=== PATIENT | female | born 1950 | race Caucasian/White ===

== ENCOUNTER 2016-10-27 22:55 | Emergency (ER) | payer MEDICARE, OTHER ==
--- NOTE | 2016-10-27 23:18 | ED ---
General Adult HPI - General Chief complaint: Chest Pain Stated complaint: chest pains hx of heart attacks Time Seen by Provider: 10/27/16 23:00 Source: patient, RN notes reviewed Mode of arrival: wheelchair Limitations: no limitations - History of Present Illness Initial comments: This is a 66-year-old female with past medical history significant for bypass surgery. Patient comes in today because she been experiencing central chest pain which radiates up to the left side of her neck. Patient states the pain started last night been intermittent ever since. Patient states she's had no difficulty breathing or shortness of breath per patient denies any palpitations. Patient denies any recent fever chills or cough. Patient denies any diaphoresis. Patient states she was nauseated earlier and did vomit times one. Patient denies any abdominal pain. Patient denies any headache patient denies numbness weakness. Patient denies any dizziness or near syncopal episode or lightheadedness. Patient states currently the pain persists she took some aspirin at home but she states she is ALLERGIC to nitroglycerin. - Related Data Home Medications Medication Instructions Recorded Confirmed Levothyroxine Sodium [Synthroid] 50 mcg PO DAILY 04/11/14 10/27/16 Atorvastatin [Lipitor] 20 mg PO HS 03/01/15 10/27/16 Aspirin 650 mg PO BID 05/09/16 10/27/16 Metoprolol Tartrate [Lopressor] 12.5 mg PO BID 05/09/16 10/27/16 amLODIPine [Norvasc] 2.5 mg PO DAILY 05/09/16 10/27/16 Previous Rx's Medication Instructions Recorded Clopidogrel [Plavix] 75 mg PO DAILY #30 tab 05/27/14 Ipratropium/Albuterol Sulfate 1 puff INHALATION RT-QID #1 03/02/15 [Combivent Respimat Inhaler] aer.w.adap Allergies Allergy/AdvReac Type Severity Reaction Status Date / Time Iodinated Contrast Media - Allergy Severe Rash/Hives Verified 10/27/16 23:13 Oral and beclomethasone dipropionate Allergy Unknown Verified 10/27/16 23:13 [From Qvar] clonidine HCl [From Catapres] Allergy Unknown Verified 10/27/16 23:13 codeine Allergy Unknown Verified 10/27/16 23:13 heparin Allergy Unknown Verified 02/02/17 23:13 hydromorphone HCl Allergy Unknown Verified 10/27/16 23:13 [From Dilaudid] iodine Allergy Unknown Verified 10/27/16 23:13 morphine Allergy Anaphylaxis Verified 10/27/16 23:13 oxytetracycline Allergy Unknown Verified 10/27/16 23:13 [From Terramycin] oxytetracycline HCl Allergy Unknown Verified 10/27/16 23:13 [From Terramycin] Penicillins Allergy Unknown Verified 10/27/16 23:13 pt states Allergy Unknown Uncoded 10/27/16 23:00 Review of Systems ROS Statement: Those systems with pertinent positive or pertinent negative responses have been documented in the HPI. ROS Other: All systems not noted in ROS Statement are negative. Past Medical History Past Medical History: Atrial Flutter, Coronary Artery Disease (CAD), Cancer, Chest Pain / Angina, CVA/TIA, Hyperlipidemia, Hypertension, Myocardial Infarction ([place]), Musculoskeletal Disorder, Osteoarthritis (OA), Pneumonia, Renal Disease, Seizure Disorder, Thyroid Disorder Additional Past Medical History / Comment(s): TIA's. has had several seizures in childhood, none in recent years Last Myocardial Infarction Date:: 2013 History of Any Multi-Drug Resistant Organisms: None Reported Past Surgical History: Appendectomy, Coronary Bypass/CABG, Heart Catheterization , Heart Catheterization With Stent, Hysterectomy Additional Past Surgical History / Comment(s): CYST REMOVED FROM LEFT SHOULDERHYSTERECTOMY DUE TO CA. Past Anesthesia/Blood Transfusion Reactions: Blood Transfusion Reaction Additional Past Anesthesia/Blood Transfusion Reaction / Comment(s): BLISTERS Date of Last Stent Placement:: 2003 Past Psychological History: No Psychological Hx Reported Smoking Status: Current every day smoker Past Alcohol Use History: None Reported Past Drug Use History: None Reported - Past Family History Mother Family Medical History: Diabetes Mellitus, Myocardial Infarction ([place]) Father Family Medical History: Diabetes Mellitus, Myocardial Infarction ([place]) Additional Family Medical History / Comment(s): at 62 of heart attack General Exam - General Exam Comments Initial Comments: GENERAL: Patient is well-developed and well-nourished. Patient is nontoxic and well- hydrated and is in mild distress. ENT: Neck is soft and supple. No significant lymphadenopathy is noted. Oropharynx is clear. Moist mucous membranes. Neck has full range of motion without eliciting any pain. EYES: The sclera were anicteric and conjunctiva were pink and moist. Extraocular movements were intact and pupils were equal round and reactive to light. Eyelids were unremarkable. PULMONARY: Unlabored respirations. Good breath sounds bilaterally. No audible rales rhonchi or wheezing was noted. CARDIOVASCULAR: There is a regular rate and rhythm without any murmurs gallops or rubs. ABDOMEN: Soft and nontender with normal bowel sounds. No palpable organomegaly was noted. There is no palpable pulsatile mass. SKIN: Skin is clear with no lesions or rashes and otherwise unremarkable. NEUROLOGIC: Patient is alert and oriented x3. Cranial nerves II through XII are grossly intact. Motor and sensory are also intact. Normal speech, volume and content. Symmetrical smile. MUSCULOSKELETAL: Normal extremities with adequate strength and full range of motion. No lower extremity swelling or edema. No calf tenderness. LYMPHATICS: No significant lymphadenopathy is noted PSYCHIATRIC: Normal psychiatric evaluation. Normal interpersonal interactions appears functionally intact in deals appropriately with others. No signs of depression. No signs of anxiety. Limitations: no limitations Course Vital Signs 10/27/16 10/27/16 10/28/16 22:57 23:45 00:41 Temperature 98.0 F 97 F L Pulse Rate 59 L 57 L 87 Respiratory 18 20 18 Rate Blood Pressure 149/69 132/62 128/62 O2 Sat by Pulse 97 97 97 Oximetry Medical Decision Making - Medical Decision Making EKG shows sinus bradycardia 57 bpm W[place] interval is 166 QRS on and 16 QT interval is 444 QTC is 432. Patient's EKG shows no ST segment elevation or depression or T wave abnormalities are noted. Chest x-ray showed no acute abdomen. I felt the patient was having unstable angina and I recommended that she stay on 2 different occasions and on both cases she stated she would not states she eventually signed out AMA I explained the risks of signing out she was in agreement that she understood the risks and she signed out. - Lab Data Result diagrams: 10/27/16 23:15 10/27/16 23:15 Lab Results 10/27/16 10/27/16 10/27/16 Range/Units 23:15 23:15 23:15 WBC 6.9 (3.8-10.6) k/uL RBC 4.66 (3.80-5.40) m/uL Hgb 14.5 (11.4-16.0) gm/dL Hct 43.3 (34.0-46.0) % MCV 92.9 (80.0-100.0) fL MCH 31.2 (25.0-35.0) pg MCHC 33.6 (31.0-37.0) g/dL RDW 12.8 (11.5-15.5) % Plt Count 172 (150-450) k/uL Neutrophils % 47 % Lymphocytes % 37 % Monocytes % 6 % Eosinophils % 7 % Basophils % 1 % Neutrophils # 3.2 (1.3-7.7) k/uL Lymphocytes # 2.6 (1.0-4.8) k/uL Monocytes # 0.4 (0-1.0) k/uL Eosinophils # 0.5 (0-0.7) k/uL Basophils # 0.0 (0-0.2) k/uL PT (9.0-12.0) sec INR (<1.1) APTT (22.0-30.0) sec Sodium 141 (137-145) mmol/L Potassium 4.0 (3.5-5.1) mmol/L Chloride 109 H (98-107) mmol/L Carbon Dioxide 23 (22-30) mmol/L Anion Gap 9 mmol/L BUN 16 (7-17) mg/dL Creatinine 0.70 (0.52-1.04) mg/dL Est GFR (MDRD) Af Amer >60 (>60 ml/min/1.73 sqM) Est GFR (MDRD) Non-Af >60 (>60 ml/min/1.73 sqM) Glucose 95 (74-99) mg/dL Calcium 9.4 (8.4-10.2) mg/dL Magnesium 1.9 (1.6-2.3) mg/dL Total Bilirubin 0.2 (0.2-1.3) mg/dL AST 20 (14-36) U/L ALT 28 (9-52) U/L Alkaline Phosphatase 74 (38-126) U/L Total Creatine Kinase 97 (30-135) U/L CK-MB (CK-2) 1.1 (0.0-2.4) ng/mL CK-MB (CK-2) Rel Index 1.1 Troponin I <0.012 (0.000-0.034) ng/mL Total Protein 6.9 (6.3-8.2) g/dL Albumin 3.9 (3.5-5.0) g/dL 10/27/16 Range/Units 23:15 WBC (3.8-10.6) k/uL RBC (3.80-5.40) m/uL Hgb (11.4-16.0) gm/dL Hct (34.0-46.0) % MCV (80.0-100.0) fL MCH (25.0-35.0) pg MCHC (31.0-37.0) g/dL RDW (11.5-15.5) % Plt Count (150-450) k/uL Neutrophils % % Lymphocytes % % Monocytes % % Eosinophils % % Basophils % % Neutrophils # (1.3-7.7) k/uL Lymphocytes # (1.0-4.8) k/uL Monocytes # (0-1.0) k/uL Eosinophils # (0-0.7) k/uL Basophils # (0-0.2) k/uL PT 9.9 (9.0-12.0) sec INR 1.0 (<1.1) APTT 22.1 (22.0-30.0) sec Sodium (137-145) mmol/L Potassium (3.5-5.1) mmol/L Chloride (98-107) mmol/L Carbon Dioxide (22-30) mmol/L Anion Gap mmol/L BUN (7-17) mg/dL Creatinine (0.52-1.04) mg/dL Est GFR (MDRD) Af Amer (>60 ml/min/1.73 sqM) Est GFR (MDRD) Non-Af (>60 ml/min/1.73 sqM) Glucose (74-99) mg/dL Calcium (8.4-10.2) mg/dL Magnesium (1.6-2.3) mg/dL Total Bilirubin (0.2-1.3) mg/dL AST (14-36) U/L ALT (9-52) U/L Alkaline Phosphatase (38-126) U/L Total Creatine Kinase (30-135) U/L CK-MB (CK-2) (0.0-2.4) ng/mL CK-MB (CK-2) Rel Index Troponin I (0.000-0.034) ng/mL Total Protein (6.3-8.2) g/dL Albumin (3.5-5.0) g/dL Disposition Clinical Impression: Unstable angina Disposition: Left Against Medical Advice Referrals: Tanika Ricketts MD [Primary Care Provider] - 1-2 days Time of Disposition: 01:05
[2016-10-27 23:25] LABS: Basophils % (A) 1 %; CHCM 34.6; Eosinophils # (A) 0.5 k/uL (0-0.7); Eosinophils % (A) 7 %; HCT 43.3 % (34.0-46.0); HDW 2.43; HGB 14.5 gm/dL (11.4-16.0); Luc # (Auto) 0.22; Luc % (Auto) 3; Lymphocytes # (A) 2.6 k/uL (1.0-4.8); Lymphocytes % (A) 37 %; MCH 31.2 pg (25.0-35.0); MCHC 33.6 g/dL (31.0-37.0); MCV 92.9 fL (80.0-100.0); Mean Platelet Volume 7.8; Monocytes # (A) 0.4 k/uL (0-1.0); Monocytes % (A) 6 %; Neutrophils # (A) 3.2 k/uL (1.3-7.7); Neutrophils % (A) 47 %; RBC 4.66 m/uL (3.80-5.40); RDW 12.8 % (11.5-15.5); WBC 6.9 k/uL (3.8-10.6); WBC (Perox) 6.97
[2016-10-27 23:35] LABS: Partial Thromboplastin Time 22.1 sec (22.0-30.0); Prothrombin Time 9.9 sec (9.0-12.0)
[2016-10-27 23:37] LABS: ALT 28 U/L (9-52); AST 20 U/L (14-36); Alkaline Phosphatase 74 U/L (38-126); Anion Gap 9 mmol/L; Blood Urea Nitrogen 16 mg/dL (7-17); Calcium 9.4 mg/dL (8.4-10.2); Carbon Dioxide 23 mmol/L (22-30); Chloride 109 mmol/L (98-107); Glucose 95 mg/dL (74-99); Magnesium 1.9 mg/dL (1.6-2.3); Non-African American GFR(MDRD) >60 (>60 ml/min/1.73 sqM); Sodium 141 mmol/L (137-145); Total Bilirubin 0.2 mg/dL (0.2-1.3); Total Protein 6.9 g/dL (6.3-8.2)
[2016-10-27 23:43] LABS: Creatine Kinase 97 U/L (30-135)
[2016-10-27 23:57] LABS: Creatine Kinase MB 1.1 ng/mL (0.0-2.4); Troponin I <0.012 ng/mL (0.000-0.034)
--- NOTE | 2016-10-28 00:05 | XR ---
EXAMINATION TYPE: XR chest 2V DATE OF EXAM: 10/27/2016 11:40 PM COMPARISON: 05/09/2016 HISTORY: History of CABG and chest pain TECHNIQUE: Frontal and lateral views of the chest are obtained. FINDINGS: No focal pneumonia pneumothorax or pleural effusion is noted. Chronic interstitial lung changes are suggested. Postsurgical changes of sternotomy are present. Athe rosclerotic calcification is noted in the aortic arch. The cardiac silhouette size is within normal limits. The osseous structures are intact. IMPRESSION: 1. No active lung infiltrates. 2. No significant interval change. 3. Chronic lung changes and sternotomy..
[2016-10-28 00:42] VITALS: BP 128/62; PULSE 87; RESP 18; TEMP 97
== END 2016-10-28 00:42 | disposition left against medical advice (07) ==
LOC: EC 22:55
DX: I25.110 Atherosclerotic heart disease of native coronary artery with unstable angina pectoris (principal); E07.9 Disorder of thyroid, unspecified; E78.5 Hyperlipidemia, unspecified; I10 Essential (primary) hypertension; Z95.1 Presence of aortocoronary bypass graft; Z88.8 Allergy status to other drugs, medicaments and biological substances; Z79.899 Other long term (current) drug therapy; Z79.82 Long term (current) use of aspirin; Z88.1 Allergy status to other antibiotic agents; Z91.041 Radiographic dye allergy status; Z88.5 Allergy status to narcotic agent; Z88.0 Allergy status to penicillin; Z91.048 Other nonmedicinal substance allergy status; I25.2 Old myocardial infarction; F17.200 Nicotine dependence, unspecified, uncomplicated; Z86.73 Personal history of transient ischemic attack (TIA), and cerebral infarction without residual deficits; Z95.5 Presence of coronary angioplasty implant and graft
CPT/HCPCS: 36415; 71020; 80053; 82550; 82553; 83735; 84484; 85025; 85610; 85730; 93005; 99285

== ENCOUNTER → 2017-02-13 | Outpatient (CLI) | payer MEDICARE, OTHER ==
[2017-02-13 20:11] LABS: Basophils # (A) 0.1 k/uL (0-0.2); Basophils % (A) 1 %; CH 31.5; Eosinophils # (A) 0.2 k/uL (0-0.7); Eosinophils % (A) 3 %; HCT 46.5 % (34.0-46.0); HDW 2.35; HGB 15.2 gm/dL (11.4-16.0); Luc # (Auto) 0.15; Luc % (Auto) 2; Lymphocytes # (A) 1.9 k/uL (1.0-4.8); Lymphocytes % (A) 29 %; MCH 31.3 pg (25.0-35.0); MCHC 32.7 g/dL (31.0-37.0); MCV 95.8 fL (80.0-100.0); Mean Platelet Volume 8.3; Monocytes # (A) 0.3 k/uL (0-1.0); Monocytes % (A) 5 %; Neutrophils # (A) 3.9 k/uL (1.3-7.7); Neutrophils % (A) 59 %; RBC 4.85 m/uL (3.80-5.40); RDW 12.6 % (11.5-15.5); WBC 6.6 k/uL (3.8-10.6); WBC (Perox) 6.73
[2017-02-13 20:23] LABS: ALT 27 U/L (9-52); AST 24 U/L (14-36); Alkaline Phosphatase 77 U/L (38-126); Anion Gap 14 mmol/L; Blood Urea Nitrogen 18 mg/dL (7-17); Calcium 9.8 mg/dL (8.4-10.2); Carbon Dioxide 23 mmol/L (22-30); Chloride 108 mmol/L (98-107); Cholesterol 153 mg/dL (<200); Glucose 93 mg/dL (74-99); HDL Cholesterol 54 mg/dL (40-60); Non-African American GFR(MDRD) >60 (>60 ml/min/1.73 sqM); Sodium 145 mmol/L (137-145); Total Bilirubin 0.4 mg/dL (0.2-1.3); Total Protein 7.6 g/dL (6.3-8.2); Triglycerides 93 mg/dL (<150)
[2017-02-13 21:04] LABS: Vitamin B12 784 pg/mL
[2017-02-13 21:22] LABS: Hemoglobin A1C 5.9 % (4.2-6.1)
== END ==
LOC: MMGSC 14:51
PROVIDERS: ATTEND Family Medicine
DX: E03.9 Hypothyroidism, unspecified (principal); E11.9 Type 2 diabetes mellitus without complications; E78.5 Hyperlipidemia, unspecified; I25.10 Atherosclerotic heart disease of native coronary artery without angina pectoris; R53.83 Other fatigue
CPT/HCPCS: 36415; 80053; 80061; 82043; 82306; 82607; 83036; 84439; 84443; 85025; 99214

== ENCOUNTER 2017-03-16 15:53 | Emergency (ER) | payer MEDICARE, OTHER ==
--- NOTE | 2017-03-16 16:32 | ED ---
General Adult HPI - General Chief complaint: Recheck/Abnormal Lab/Rx Stated complaint: weakness heart fluttering Time Seen by Provider: 03/16/17 16:19 Source: patient, RN notes reviewed, old records reviewed Mode of arrival: ambulatory Limitations: no limitations - History of Present Illness Initial comments: This is a 66 female to the ED co CP, patient has severe cardiac history, CABG, stent after cabbage. Patient with pain for about a week at this time, patient still chest at this time, anterior chest pain having is just like prior [place]. Patient both MIs presented in the similar fashion. Patient has no fever, congestion, does have mild shortness of breath with exertion. Patient is single sick contacts. - Related Data Home Medications Medication Instructions Recorded Confirmed Levothyroxine Sodium [Synthroid] 50 mcg PO DAILY 04/11/14 03/16/17 Atorvastatin [Lipitor] 20 mg PO HS 03/01/15 03/16/17 Aspirin 650 mg PO BID 05/09/16 03/16/17 Metoprolol Tartrate [Lopressor] 12.5 mg PO BID 05/09/16 03/16/17 amLODIPine [Norvasc] 2.5 mg PO DAILY 05/09/16 03/16/17 Ranitidine HCl [Zantac] 150 mg PO BID 03/16/17 03/16/17 Previous Rx's Medication Instructions Recorded Clopidogrel [Plavix] 75 mg PO DAILY #30 tab 05/27/14 Ipratropium/Albuterol Sulfate 1 puff INHALATION RT-QID #1 03/02/15 [Combivent Respimat Inhaler] aer.w.adap Allergies Allergy/AdvReac Type Severity Reaction Status Date / Time Iodinated Contrast Media - Allergy Severe Rash/Hives Verified 03/16/17 16:09 Oral and beclomethasone dipropionate Allergy Unknown Verified 03/16/17 16:09 [From Qvar] clonidine HCl [From Catapres] Allergy Unknown Verified 03/16/17 16:09 codeine Allergy Unknown Verified 03/16/17 16:09 heparin Allergy Unknown Verified 03/16/17 16:09 hydromorphone HCl Allergy Unknown Verified 03/16/17 16:09 [From Dilaudid] iodine Allergy Unknown Verified 03/16/17 16:09 morphine Allergy Anaphylaxis Verified 03/16/17 16:09 oxytetracycline Allergy Unknown Verified 03/16/17 16:09 [From Terramycin] oxytetracycline HCl Allergy Unknown Verified 03/16/17 16:09 [From Terramycin] Penicillins Allergy Unknown Verified 03/16/17 16:09 pt states Allergy Unknown Uncoded 03/16/17 16:09 Review of Systems ROS Statement: Those systems with pertinent positive or pertinent negative responses have been documented in the HPI. ROS Other: All systems not noted in ROS Statement are negative. Past Medical History Past Medical History: Atrial Flutter, Coronary Artery Disease (CAD), Cancer, Chest Pain / Angina, CVA/TIA, Hyperlipidemia, Hypertension, Myocardial Infarction ([place]), Musculoskeletal Disorder, Osteoarthritis (OA), Pneumonia, Renal Disease, Seizure Disorder, Thyroid Disorder Additional Past Medical History / Comment(s): ABBEY's. has had several seizures in childhood, none in recent years Last Myocardial Infarction Date:: 2013 History of Any Multi-Drug Resistant Organisms: None Reported Past Surgical History: Appendectomy, Coronary Bypass/CABG, Heart Catheterization , Heart Catheterization With Stent, Hysterectomy Additional Past Surgical History / Comment(s): CYST REMOVED FROM LEFT SHOULDERHYSTERECTOMY DUE TO CA. Past Anesthesia/Blood Transfusion Reactions: Blood Transfusion Reaction Additional Past Anesthesia/Blood Transfusion Reaction / Comment(s): BLISTERS Date of Last Stent Placement:: 2003 Past Psychological History: No Psychological Hx Reported Smoking Status: Current every day smoker Past Alcohol Use History: None Reported Past Drug Use History: None Reported - Past Family History Mother Family Medical History: Diabetes Mellitus, Myocardial Infarction ([place]) Father Family Medical History: Diabetes Mellitus, Myocardial Infarction ([place]) Additional Family Medical History / Comment(s): at 62 of heart attack General Exam Limitations: no limitations General appearance: alert, in no apparent distress Head exam: Present: atraumatic, normocephalic, normal inspection Eye exam: Present: normal appearance, PERRL, EOMI. Absent: scleral icterus, conjunctival injection, periorbital swelling ENT exam: Present: normal exam, mucous membranes moist Neck exam: Present: normal inspection. Absent: tenderness, meningismus, lymphadenopathy Respiratory exam: Present: normal lung sounds bilaterally. Absent: respiratory distress, wheezes, rales, rhonchi, stridor Cardiovascular Exam: Present: regular rate, normal rhythm, normal heart sounds. Absent: systolic murmur, diastolic murmur, rubs, gallop, clicks GI/Abdominal exam: Present: soft, normal bowel sounds. Absent: distended, tenderness, guarding, rebound, rigid Extremities exam: Present: normal inspection, full ROM, normal capillary refill. Absent: tenderness, pedal edema, joint swelling, calf tenderness Back exam: Present: normal inspection Neurological exam: Present: alert, oriented X3, CN II-XII intact Psychiatric exam: Present: normal affect, normal mood Skin exam: Present: warm, dry, intact, normal color. Absent: rash Course Vital Signs 03/16/17 03/16/17 03/16/17 16:06 16:09 16:45 Temperature 98.1 F 99.1 F Pulse Rate 72 97 Respiratory 18 18 16 Rate Blood Pressure 124/59 149/66 O2 Sat by Pulse 99 Oximetry - Reevaluation(s) Reevaluation #1: 03/16/17 17:18 patient is still with chest pain EKG Findings - EKG Comments: EKG Findings:: EKG shows normal sinus rate of 69, RI 136, QRS 112, QTC 465, patient does have anterior T-wave inversion Medical Decision Making - Medical Decision Making 66 seen at ER for evasive chest pain, chest changes a prior [place], patient has history of CABG and stenting after cabbages that the cardiol patient does have anterior T-wave inversions on EKG, patient be admitted for cardiac observation, telemetry and serial troponins. Patient is ALLERGIC to heparin - Lab Data Result diagrams: 03/16/17 16:41 03/16/17 16:41 Lab Results 03/16/17 03/16/17 03/16/17 Range/Units 16:41 16:41 16:41 WBC 5.8 (3.8-10.6) k/uL RBC 4.66 (3.80-5.40) m/uL Hgb 15.5 (11.4-16.0) gm/dL Hct 42.7 (34.0-46.0) % MCV 91.6 (80.0-100.0) fL MCH 33.1 (25.0-35.0) pg MCHC 36.2 (31.0-37.0) g/dL RDW 12.8 (11.5-15.5) % Plt Count 182 (150-450) k/uL Neutrophils % 58 % Lymphocytes % 29 % Monocytes % 5 % Eosinophils % 4 % Basophils % 1 % Neutrophils # 3.4 (1.3-7.7) k/uL Lymphocytes # 1.7 (1.0-4.8) k/uL Monocytes # 0.3 (0-1.0) k/uL Eosinophils # 0.2 (0-0.7) k/uL Basophils # 0.1 (0-0.2) k/uL PT 10.1 (9.0-12.0) sec INR 1.0 (<1.1) APTT 22.1 (22.0-30.0) sec Sodium 143 (137-145) mmol/L Potassium 4.1 (3.5-5.1) mmol/L Chloride 110 H (98-107) mmol/L Carbon Dioxide 24 (22-30) mmol/L Anion Gap 9 mmol/L BUN 18 H (7-17) mg/dL Creatinine 0.80 (0.52-1.04) mg/dL Est GFR (MDRD) Af Amer >60 (>60 ml/min/1.73 sqM) Est GFR (MDRD) Non-Af >60 (>60 ml/min/1.73 sqM) Glucose 93 (74-99) mg/dL Calcium 9.4 (8.4-10.2) mg/dL Magnesium 2.0 (1.6-2.3) mg/dL Total Bilirubin 0.5 (0.2-1.3) mg/dL AST 21 (14-36) U/L ALT 25 (9-52) U/L Alkaline Phosphatase 80 (38-126) U/L Total Protein 7.2 (6.3-8.2) g/dL Albumin 4.1 (3.5-5.0) g/dL Lipase 136 (23-300) U/L - Radiology Data Radiology results: report reviewed (Chest x-ray is negative for acute disease), image reviewed Critical Care Time Critical Care Time: Yes Total Critical Care Time: 31 Disposition Clinical Impression: Unstable angina Disposition: ADMITTED IP TO THIS [facility] Condition: Fair Referrals: Tanika Ricketts MD [Primary Care Provider] - 1-2 days
[2017-03-16 17:00] LABS: Basophils # (A) 0.1 k/uL (0-0.2); Basophils % (A) 1 %; CH 31.8; CHCM 34.8; Eosinophils # (A) 0.2 k/uL (0-0.7); Eosinophils % (A) 4 %; HCT 42.7 % (34.0-46.0); HDW 2.41; HGB 15.5 gm/dL (11.4-16.0); Luc # (Auto) 0.19; Luc % (Auto) 3; Lymphocytes # (A) 1.7 k/uL (1.0-4.8); Lymphocytes % (A) 29 %; MCH 33.1 pg (25.0-35.0); MCHC 36.2 g/dL (31.0-37.0); MCV 91.6 fL (80.0-100.0); Mean Platelet Volume 8.1; Monocytes # (A) 0.3 k/uL (0-1.0); Monocytes % (A) 5 %; Neutrophils # (A) 3.4 k/uL (1.3-7.7); Neutrophils % (A) 58 %; RBC 4.66 m/uL (3.80-5.40); RDW 12.8 % (11.5-15.5); WBC 5.8 k/uL (3.8-10.6); WBC (Perox) 5.91
[2017-03-16 17:07] LABS: Partial Thromboplastin Time 22.1 sec (22.0-30.0); Prothrombin Time 10.1 sec (9.0-12.0)
--- NOTE | 2017-03-16 17:07 | XR ---
EXAMINATION TYPE: XR chest 2V DATE OF EXAM: 03/16/2017 COMPARISON: 10/27/2016 HISTORY: Weakness TECHNIQUE: Frontal and lateral views of the chest are obtained. FINDINGS: Heart and mediastinum are within normal limits. Lungs are clear. Costophrenic angles are c lear. There are no hilar masses. Thoracic aorta is atheromatous. There are sternal wires. There are c hest leads. IMPRESSION: No active cardiopulmonary disease. No change.
[2017-03-16 17:10] LABS: ALT 25 U/L (9-52); AST 21 U/L (14-36); Alkaline Phosphatase 80 U/L (38-126); Anion Gap 9 mmol/L; Blood Urea Nitrogen 18 mg/dL (7-17); Calcium 9.4 mg/dL (8.4-10.2); Carbon Dioxide 24 mmol/L (22-30); Chloride 110 mmol/L (98-107); Glucose 93 mg/dL (74-99); Non-African American GFR(MDRD) >60 (>60 ml/min/1.73 sqM); Potassium 4.1 mmol/L (3.5-5.1); Sodium 143 mmol/L (137-145); Total Bilirubin 0.5 mg/dL (0.2-1.3); Total Protein 7.2 g/dL (6.3-8.2)
[2017-03-16] MEDS ORDERED: NITROGLYCERIN SL TABS 0.4 MG TAB SUBLINGUAL PRN (17:14)
[2017-03-16] MEDS ORDERED: ASPIRIN 81 MG CHEW PO STA (17:14)
[2017-03-16 17:17] LABS: Creatine Kinase 86 U/L (30-135)
[2017-03-16 17:31] LABS: Troponin I <0.012 ng/mL (0.000-0.034)
[2017-03-16 17:53] VITALS: RESP 18
--- NOTE | 2017-03-16 18:07 | ED ---
Medical Decision Making - Lab Data Result diagrams: 03/16/17 16:41 03/16/17 16:41 Lab Results 03/16/17 03/16/17 03/16/17 Range/Units 16:41 16:41 16:41 WBC 5.8 (3.8-10.6) k/uL RBC 4.66 (3.80-5.40) m/uL Hgb 15.5 (11.4-16.0) gm/dL Hct 42.7 (34.0-46.0) % MCV 91.6 (80.0-100.0) fL MCH 33.1 (25.0-35.0) pg MCHC 36.2 (31.0-37.0) g/dL RDW 12.8 (11.5-15.5) % Plt Count 182 (150-450) k/uL Neutrophils % 58 % Lymphocytes % 29 % Monocytes % 5 % Eosinophils % 4 % Basophils % 1 % Neutrophils # 3.4 (1.3-7.7) k/uL Lymphocytes # 1.7 (1.0-4.8) k/uL Monocytes # 0.3 (0-1.0) k/uL Eosinophils # 0.2 (0-0.7) k/uL Basophils # 0.1 (0-0.2) k/uL PT (9.0-12.0) sec INR (<1.1) APTT (22.0-30.0) sec Sodium 143 (137-145) mmol/L Potassium 4.1 (3.5-5.1) mmol/L Chloride 110 H (98-107) mmol/L Carbon Dioxide 24 (22-30) mmol/L Anion Gap 9 mmol/L BUN 18 H (7-17) mg/dL Creatinine 0.80 (0.52-1.04) mg/dL Est GFR (MDRD) Af Amer >60 (>60 ml/min/1.73 sqM) Est GFR (MDRD) Non-Af >60 (>60 ml/min/1.73 sqM) Glucose 93 (74-99) mg/dL Calcium 9.4 (8.4-10.2) mg/dL Magnesium 2.0 (1.6-2.3) mg/dL Total Bilirubin 0.5 (0.2-1.3) mg/dL AST 21 (14-36) U/L ALT 25 (9-52) U/L Alkaline Phosphatase 80 (38-126) U/L Total Creatine Kinase 86 (30-135) U/L CK-MB (CK-2) 1.0 (0.0-2.4) ng/mL CK-MB (CK-2) Rel Index 1.2 Troponin I <0.012 (0.000-0.034) ng/mL Total Protein 7.2 (6.3-8.2) g/dL Albumin 4.1 (3.5-5.0) g/dL Lipase 136 (23-300) U/L 03/16/17 Range/Units 16:41 WBC (3.8-10.6) k/uL RBC (3.80-5.40) m/uL Hgb (11.4-16.0) gm/dL Hct (34.0-46.0) % MCV (80.0-100.0) fL MCH (25.0-35.0) pg MCHC (31.0-37.0) g/dL RDW (11.5-15.5) % Plt Count (150-450) k/uL Neutrophils % % Lymphocytes % % Monocytes % % Eosinophils % % Basophils % % Neutrophils # (1.3-7.7) k/uL Lymphocytes # (1.0-4.8) k/uL Monocytes # (0-1.0) k/uL Eosinophils # (0-0.7) k/uL Basophils # (0-0.2) k/uL PT 10.1 (9.0-12.0) sec INR 1.0 (<1.1) APTT 22.1 (22.0-30.0) sec Sodium (137-145) mmol/L Potassium (3.5-5.1) mmol/L Chloride (98-107) mmol/L Carbon Dioxide (22-30) mmol/L Anion Gap mmol/L BUN (7-17) mg/dL Creatinine (0.52-1.04) mg/dL Est GFR (MDRD) Af Amer (>60 ml/min/1.73 sqM) Est GFR (MDRD) Non-Af (>60 ml/min/1.73 sqM) Glucose (74-99) mg/dL Calcium (8.4-10.2) mg/dL Magnesium (1.6-2.3) mg/dL Total Bilirubin (0.2-1.3) mg/dL AST (14-36) U/L ALT (9-52) U/L Alkaline Phosphatase (38-126) U/L Total Creatine Kinase (30-135) U/L CK-MB (CK-2) (0.0-2.4) ng/mL CK-MB (CK-2) Rel Index Troponin I (0.000-0.034) ng/mL Total Protein (6.3-8.2) g/dL Albumin (3.5-5.0) g/dL Lipase (23-300) U/L Disposition Clinical Impression: Unstable angina Disposition: HOME SELF-CARE Condition: Fair
[2017-03-16 18:21] VITALS: BP 139/58; PULSE 69; TEMP 98.1
[2017-03-17] MEDS ORDERED: ASPIRIN 325 MG TAB PO SCH (09:00)
== END 2017-03-16 18:30 | disposition home or self-care (01) ==
LOC: EC 15:53 → 3OBS 17:14 → UNDOADMOB 17:14 → EC 18:30
DX: I20.0 Unstable angina (principal); E78.5 Hyperlipidemia, unspecified; I10 Essential (primary) hypertension; I25.2 Old myocardial infarction; M19.90 Unspecified osteoarthritis, unspecified site; E07.9 Disorder of thyroid, unspecified; F17.200 Nicotine dependence, unspecified, uncomplicated; Z79.899 Other long term (current) drug therapy; Z88.5 Allergy status to narcotic agent; Z88.1 Allergy status to other antibiotic agents; Z91.041 Radiographic dye allergy status; Z88.0 Allergy status to penicillin; Z88.8 Allergy status to other drugs, medicaments and biological substances; Z82.49 Family history of ischemic heart disease and other diseases of the circulatory system; Z95.5 Presence of coronary angioplasty implant and graft
CPT/HCPCS: 36415; 71020; 80053; 82550; 82553; 83690; 83735; 84484; 85025; 85610; 85730; 93005; 99291

== ENCOUNTER → 2017-10-18 | Outpatient (CLI) | payer MEDICARE, OTHER ==
[2017-10-18 19:53] LABS: Basophils # (A) 0.1 k/uL (0-0.2); Basophils % (A) 1 %; Eosinophils # (A) 0.1 k/uL (0-0.7); Eosinophils % (A) 2 %; HCT 48.2 % (34.0-46.0); HGB 15.8 gm/dL (11.4-16.0); Lymphocytes # (A) 1.8 k/uL (1.0-4.8); Lymphocytes % (A) 39 %; MCH 30.5 pg (25.0-35.0); MCHC 32.7 g/dL (31.0-37.0); MCV 93.4 fL (80.0-100.0); Mean Platelet Volume 8.4; Monocytes # (A) 0.3 k/uL (0-1.0); Monocytes % (A) 6 %; Neutrophils # (A) 2.3 k/uL (1.3-7.7); Neutrophils % (A) 49 %; Platelet Count 175 k/uL (150-450); RBC 5.17 m/uL (3.80-5.40); RDW 12.3 % (11.5-15.5); WBC 4.7 k/uL (3.8-10.6)
[2017-10-18 20:02] LABS: ALT 33 U/L (9-52); AST 29 U/L (14-36); Albumin 4.5 g/dL (3.5-5.0); Alkaline Phosphatase 73 U/L (38-126); Anion Gap 12 mmol/L; Blood Urea Nitrogen 17 mg/dL (7-17); Calcium 9.9 mg/dL (8.4-10.2); Carbon Dioxide 25 mmol/L (22-30); Chloride 106 mmol/L (98-107); Cholesterol 155 mg/dL (<200); Glucose 94 mg/dL (74-99); HDL Cholesterol 43 mg/dL (40-60); LDL Cholesterol,Calculated 88 mg/dL (0-99); Potassium 4.3 mmol/L (3.5-5.1); Sodium 143 mmol/L (137-145); Total Bilirubin 0.4 mg/dL (0.2-1.3); Total Protein 7.9 g/dL (6.3-8.2); Triglycerides 121 mg/dL (<150)
[2017-10-18 20:13] LABS: T4, Free (Free Thyroxine) 1.61 ng/dL (0.78-2.19)
[2017-10-19 01:33] LABS: Hemoglobin A1C 6.1 % (4.0-6.0)
== END | disposition home or self-care (01) ==
LOC: MMGSC 15:30
PROVIDERS: ATTEND Family Medicine
DX: I25.10 Atherosclerotic heart disease of native coronary artery without angina pectoris (principal); R35.8 Other polyuria; R63.4 Abnormal weight loss; R10.9 Unspecified abdominal pain
CPT/HCPCS: 36415; 80053; 80061; 83036; 84439; 84443; 85025; 87086

== ENCOUNTER → 2017-10-25 | Outpatient (CLI) | payer MEDICARE, OTHER ==
--- NOTE | 2017-10-25 16:04 | CT ---
EXAMINATION TYPE: CT abdomen pelvis wo con DATE OF EXAM: 10/25/2017 HISTORY: Left lower quadrant abdominal pain per patient. CT DLP: 218.00 mGycm. Automated Exposure Control for Dose Reduction was Utilized. TECHNIQUE: CT scan of the abdomen and pelvis is performed without oral or IV contrast. COMPARISON: CT chest and abdomen May 25, 2014 FINDINGS: Within the limitations of a non-contrast study, the following observations are made. LUNG BASES: There is partial visualization of sternal wires and mediastinal clips from CABG procedure . LIVER/GB: Dependent calcified gallstone is redemonstrated PANCREAS: No significant abnormality is seen. SPLEEN: Scattered small calcifications throughout the spleen are redemonstrated consistent with produ ct of old granulomatous disease. There is 1.0 cm splenule in splenic hilum redemonstrated. ADRENALS: No significant abnormality is seen. KIDNEYS: No significant abnormality is seen. BOWEL: There are scattered colonic diverticula most prominent at level of sigmoid colon. There is no convincing CT evidence for acute diverticulitis. GENITAL ORGANS: Uterus is surgically absent or markedly atrophic. Scattered pelvic phlebolith are see n. LYMPH NODES: No greater than 1cm abdominal or pelvic lymph nodes are appreciated. OSSEOUS STRUCTURES: There is grade 1 retrolisthesis of L2 on L3. There is moderate to severe spurring and disc space narrowing with endplate sclerosis at this level. There is moderate multilevel anterio r and lateral spurring throughout the thoracic spine. Osseous structures are demineralized. There is facet arthropathy lower lumbar levels. OTHER: Moderate atherosclerotic change of aorta extending into pelvic branch vessels is noted. IMPRESSION: Sigmoid colonic diverticulosis without CT evidence for acute diverticulitis. No significa nt acute finding is seen to account for patient's symptoms.
== END | disposition home or self-care (01) ==
LOC: RADCTMAIN 14:23
PROVIDERS: ATTEND Family Medicine
DX: K57.30 Diverticulosis of large intestine without perforation or abscess without bleeding (principal)
CPT/HCPCS: 74176

== ENCOUNTER 2018-08-03 12:10 | Emergency (ER) | payer MEDICARE, OTHER ==
[2018-08-03 12:34] VITALS: RESP 18
[2018-08-03 13:42] LABS: Basophils % (A) 1 %; Eosinophils # (A) 0.4 k/uL (0-0.7); Eosinophils % (A) 7 %; HCT 43.9 % (34.0-46.0); HGB 14.5 gm/dL (11.4-16.0); Lymphocytes # (A) 2.2 k/uL (1.0-4.8); Lymphocytes % (A) 35 %; MCH 31.1 pg (25.0-35.0); MCHC 32.9 g/dL (31.0-37.0); MCV 94.6 fL (80.0-100.0); Mean Platelet Volume 7.6; Monocytes # (A) 0.3 k/uL (0-1.0); Monocytes % (A) 6 %; Neutrophils % (A) 49 %; Platelet Count 185 k/uL (150-450); RBC 4.64 m/uL (3.80-5.40); RDW 12.4 % (11.5-15.5); WBC 6.1 k/uL (3.8-10.6)
--- NOTE | 2018-08-03 13:47 | XR ---
EXAMINATION TYPE: XR chest 2V DATE OF EXAM: 08/03/2018 COMPARISON: NONE HISTORY: Shortness of breath TECHNIQUE: Frontal and lateral views of the chest are obtained. FINDINGS: Scattered senescent parenchymal changes noted. Hyperinflation compatible with COPD. No evidence for infiltrate. No evidence for atelectasis. Heart size is stable. Mediastinal structures are stable and grossly unremarkable. No evidence for hilar prominence. Degenerative changes dorsal spine. IMPRESSION: 1. No evidence for acute pulmonary disease.
[2018-08-03 14:22] LABS: ALT 20 U/L (9-52); AST 24 U/L (14-36); Alkaline Phosphatase 70 U/L (38-126); Anion Gap 9 mmol/L; Blood Urea Nitrogen 20 mg/dL (7-17); Calcium 9.5 mg/dL (8.4-10.2); Carbon Dioxide 23 mmol/L (22-30); Chloride 108 mmol/L (98-107); Glucose 101 mg/dL (74-99); Magnesium 2.1 mg/dL (1.6-2.3); Potassium 4.1 mmol/L (3.5-5.1); Sodium 140 mmol/L (137-145); Total Bilirubin 0.5 mg/dL (0.2-1.3); Total Protein 7.6 g/dL (6.3-8.2)
[2018-08-03] MEDS ORDERED: NALOXONE 0.4 MG/ML 1 ML VIAL IV PRN (14:37)
--- NOTE | 2018-08-03 14:37 | ED ---
Chest Pain HPI - General Chief Complaint: Chest Pain Stated Complaint: Chest Pain Time Seen by Provider: 08/03/18 12:12 Source: patient Mode of arrival: EMS Limitations: no limitations - History of Present Illness Initial Comments: Patient complains of substernal crushing chest pain. Nothing makes the pain better or worse. She was not doing anything when the pain began. She has no shortness of breath, nausea or vomiting or diaphoresis. She has no lightheadedness. She has no focal weakness. The pain does not radiate anywhere. - Related Data Home Medications Medication Instructions Recorded Confirmed Levothyroxine Sodium [Synthroid] 50 mcg PO DAILY 04/11/14 08/03/18 Atorvastatin [Lipitor] 20 mg PO HS 03/01/15 08/03/18 Metoprolol Tartrate [Lopressor] 25 mg PO DAILY 05/09/16 08/03/18 amLODIPine [Norvasc] 2.5 mg PO DAILY 05/09/16 08/03/18 Ranitidine HCl [Zantac] 150 mg PO BID 03/16/17 08/03/18 Previous Rx's Medication Instructions Recorded Clopidogrel [Plavix] 75 mg PO DAILY #30 tab 05/27/14 Ipratropium/Albuterol Sulfate 1 puff INHALATION RT-QID #1 03/02/15 [Combivent Respimat Inhaler] aer.w.adap Allergies Allergy/AdvReac Type Severity Reaction Status Date / Time Iodinated Contrast- Oral and Allergy Severe Rash/Hives Verified 08/03/18 12:35 IV Dye beclomethasone dipropionate Allergy Unknown Verified 08/03/18 12:35 [From Qvar] clonidine HCl [From Catapres] Allergy Unknown Verified 08/03/18 12:35 codeine Allergy Unknown Verified 08/03/18 12:35 heparin Allergy Unknown Verified 08/03/18 12:35 hydromorphone HCl Allergy Unknown Verified 08/03/18 12:35 [From Dilaudid] iodine Allergy Unknown Verified 08/03/18 12:35 morphine Allergy Anaphylaxis Verified 08/03/18 12:35 nitroglycerin Allergy Anaphylaxis Verified 08/03/18 12:35 oxytetracycline Allergy Unknown Verified 08/03/18 12:35 [From Terramycin] oxytetracycline HCl Allergy Unknown Verified 08/03/18 12:35 [From Terramycin] Penicillins Allergy Unknown Verified 08/03/18 12:35 pt states Allergy Unknown Uncoded 08/03/18 12:35 NITRO SL AdvReac Unknown Uncoded 08/03/18 12:35 Review of Systems ROS Statement: Those systems with pertinent positive or pertinent negative responses have been documented in the HPI. ROS Other: All systems not noted in ROS Statement are negative. EKG Findings - EKG Comments: EKG Findings:: EKG interpreted by me as showing ventricular rate 54 bpm, normal ND interval and Cj complex is, no ST elevation or depression, there is some T-wave inversion, this is interpreted by me as a sinus bradycardia. Past Medical History Past Medical History: Atrial Flutter, Coronary Artery Disease (CAD), Cancer, Chest Pain / Angina, CVA/TIA, Hyperlipidemia, Hypertension, Myocardial Infarction (CO), Musculoskeletal Disorder, Osteoarthritis (OA), Pneumonia, Renal Disease, Seizure Disorder, Thyroid Disorder Additional Past Medical History / Comment(s): TIA's. has had several seizures in childhood, none in recent years Last Myocardial Infarction Date:: 2013 History of Any Multi-Drug Resistant Organisms: None Reported Past Surgical History: Appendectomy, Coronary Bypass/CABG, Heart Catheterization , Heart Catheterization With Stent, Hysterectomy Additional Past Surgical History / Comment(s): CYST REMOVED FROM LEFT SHOULDERHYSTERECTOMY DUE TO CA. Past Anesthesia/Blood Transfusion Reactions: Blood Transfusion Reaction Additional Past Anesthesia/Blood Transfusion Reaction / Comment(s): BLISTERS Date of Last Stent Placement:: 2003 Past Psychological History: No Psychological Hx Reported Smoking Status: Current every day smoker Past Alcohol Use History: None Reported Past Drug Use History: None Reported - Past Family History Mother Family Medical History: Diabetes Mellitus, Myocardial Infarction (CO) Father Family Medical History: Diabetes Mellitus, Myocardial Infarction (CO) Additional Family Medical History / Comment(s): at 62 of heart attack General Exam Limitations: no limitations General appearance: alert, in no apparent distress Head exam: Present: atraumatic, normocephalic, normal inspection Eye exam: Present: normal appearance, PERRL, EOMI. Absent: scleral icterus, conjunctival injection, periorbital swelling ENT exam: Present: normal exam, mucous membranes moist Neck exam: Present: normal inspection. Absent: tenderness, meningismus, lymphadenopathy Respiratory exam: Present: normal lung sounds bilaterally. Absent: respiratory distress, wheezes, rales, rhonchi, stridor Cardiovascular Exam: Present: regular rate, normal rhythm, normal heart sounds. Absent: systolic murmur, diastolic murmur, rubs, gallop, clicks GI/Abdominal exam: Present: soft, normal bowel sounds. Absent: distended, tenderness, guarding, rebound, rigid Extremities exam: Present: normal inspection, full ROM, normal capillary refill. Absent: tenderness, pedal edema, joint swelling, calf tenderness Back exam: Present: normal inspection Neurological exam: Present: alert, oriented X3, CN II-XII intact Psychiatric exam: Present: normal affect, normal mood Skin exam: Present: warm, dry, intact, normal color. Absent: rash Course Vital Signs 08/03/18 12:31 Temperature 97.6 F Pulse Rate 56 L Respiratory 18 Rate Blood Pressure 123/75 O2 Sat by Pulse 98 Oximetry Chest Pain MDM - Core Measures AMI Core Measures Followed: Yes - MDM Patient presents with chest pain. I'm concerned for acute coronary syndrome. Initial troponin is negative. Patient will be admitted to the hospital. Disposition Clinical Impression: Chest pain Disposition: ADMITTED IP TO THIS HOSP Condition: Fair Is patient prescribed a controlled substance at d/c from ED?: No Referrals: Tanika Ricketts MD [Primary Care Provider] - 1-2 days
[2018-08-03] MEDS ORDERED: MORPHINE SULFATE 2 MG/ML SYRINGE IVP STA (15:15)
[2018-08-03 15:20] LABS: INR 1.1 (<1.2); Prothrombin Time 10.3 sec (9.0-12.0)
[2018-08-03 15:21] LABS: Partial Thromboplastin Time 19.3 sec (22.0-30.0)
[2018-08-03 16:27] VITALS: BP 127/61; PULSE 55; TEMP 98.3
--- NOTE | 2018-08-03 18:17 | P.HPIM ---
History of Present Illness H&P Date: 08/03/18 Chief Complaint: Chest pain 68-year-old female with past medical history of hypertension, hypothyroidism, GERD, COPD, for CVAs in the past, CAD status post CABG and multiple stents presents the ED for chest pain. Patient reports waking up at 12 PM, went to the bathroom. She stood up from the toilet started experiencing constant chest pain that was persistent until 3 PM. Pain is midline. Pain is 10 on 10 in severity. Pain is described as stabbing in nature, radiating to the left side. No alleviating or aggravating factors. Patient reports a previous incidents of chest pain when she had her AL. Patient also reports upper respiratory infection at this time. This is characterized with cough productive of clear sputum, nasal discharge. Congestion and throat pain. She also complains of a bandlike headache since this morning. She denies any lower extremity edema, nausea, vomiting, fever, shortness of breath, palpitations, changes in urination or bowel habits. No changes in appetite or weight. In the ED, CBC is unremarkable. CMP showed a chloride of 108, B1 of 20, glucose 101. Initial troponin was 0.032, EKG showing sinus bradycardia and incomplete RBBB. Chest x-ray was negative for acute pulmonary disease. Patient is to be admitted for workup of chest pain, rule out acute coronary syndrome with cardiology on consult. Review of Systems All systems: negative Past Medical History Past Medical History: Atrial Flutter, Coronary Artery Disease (CAD), Cancer, Chest Pain / Angina, CVA/TIA, GERD/Reflux, Hyperlipidemia, Hypertension, Myocardial Infarction (AL), Musculoskeletal Disorder, Osteoarthritis (OA), Pneumonia, Renal Disease, Seizure Disorder, Thyroid Disorder Additional Past Medical History / Comment(s): cataracts, osteoporosis,"mi x2". pt stated "at age 9 told by she had epilepsy but pt stated she has negver had a seizure", pt stated "hx of tear in esophagus d/t upper scope" Last Myocardial Infarction Date:: 2013 History of Any Multi-Drug Resistant Organisms: None Reported Past Surgical History: Appendectomy, Coronary Bypass/CABG, Heart Catheterization , Heart Catheterization With Stent, Hysterectomy Additional Past Surgical History / Comment(s): HYSTERECTOMY DUE TO CA. cabg -3 vessels, egd Past Anesthesia/Blood Transfusion Reactions: Blood Transfusion Reaction Additional Past Anesthesia/Blood Transfusion Reaction / Comment(s): BLISTERS Date of Last Stent Placement:: 2003 Smoking Status: Current every day smoker - Past Family History Brother(s) Additional Family Medical History / Comment(s): pacemaker Mother Family Medical History: Diabetes Mellitus, Myocardial Infarction (AL) Father Family Medical History: Diabetes Mellitus, Myocardial Infarction (AL) Additional Family Medical History / Comment(s): at 62 of heart attack Medications and Allergies Home Medications Medication Instructions Recorded Confirmed Type Levothyroxine Sodium [Synthroid] 50 mcg PO DAILY 04/11/14 08/03/18 History Clopidogrel [Plavix] 75 mg PO DAILY #30 tab 05/27/14 08/03/18 Rx Atorvastatin [Lipitor] 20 mg PO HS 03/01/15 08/03/18 History Ipratropium/Albuterol Sulfate 1 puff INHALATION RT-QID #1 03/02/15 08/03/18 Rx [Combivent Respimat Inhaler] aer.w.adap Metoprolol Tartrate [Lopressor] 25 mg PO DAILY 05/09/16 08/03/18 History amLODIPine [Norvasc] 2.5 mg PO DAILY 05/09/16 08/03/18 History Ranitidine HCl [Zantac] 150 mg PO BID 03/16/17 08/03/18 History Allergies Allergy/AdvReac Type Severity Reaction Status Date / Time Iodinated Contrast- Oral and Allergy Severe Rash/Hives Verified 08/03/18 12:35 IV Dye beclomethasone dipropionate Allergy Unknown Verified 08/03/18 12:35 [From Qvar] clonidine HCl [From Catapres] Allergy Unknown Verified 08/03/18 12:35 codeine Allergy Unknown Verified 08/03/18 12:35 heparin Allergy Unknown Verified 08/03/18 12:35 hydromorphone HCl Allergy Unknown Verified 08/03/18 12:35 [From Dilaudid] iodine Allergy Unknown Verified 08/03/18 12:35 morphine Allergy Anaphylaxis Verified 08/03/18 12:35 nitroglycerin Allergy Anaphylaxis Verified 08/03/18 12:35 oxytetracycline Allergy Unknown Verified 08/03/18 12:35 [From Terramycin] oxytetracycline HCl Allergy Unknown Verified 08/03/18 12:35 [From Terramycin] Penicillins Allergy Unknown Verified 08/03/18 12:35 pt states Allergy Unknown Uncoded 08/03/18 12:35 NITRO SL AdvReac Unknown Uncoded 08/03/18 12:35 Physical Exam Vitals: Vital Signs Temp Pulse Resp BP Pulse Ox 08/03/18 16:27 98.3 F 55 L 18 127/61 97 08/03/18 12:31 97.6 F 56 L 18 123/75 98 Intake and Output 08/03/18 08/03/18 08/03/18 06:59 14:59 22:59 Other: Weight 48.534 kg General: [non toxic], [no distress], [appears at stated age] Derm: [warm], [dry] Head: [atraumatic], [normocephalic], [symmetric] Eyes: [EOMI], [no lid lag], [anicteric sclera] Mouth: [no lip lesion], [mucus membranes moist] Cardiovascular: [S1S2 reg], [no murmur], [positive posterior tibial pulse bilateral], Lungs: [CTA bilateral], [no rhonchi, no rales] , [no accessory muscle use] Abdominal: [soft], [ nontender to palpation], [no guarding], [no appreciable organomegaly] Ext: [no gross muscle atrophy], [no edema], [no contractures] Neuro: [ CN II-XI grossly intact], [no focal neuro deficits] Psych: [Alert], [oriented], [appropriate affect] Results CBC & Chem 7: 08/03/18 12:42 08/03/18 12:42 Labs: Abnormal Lab Results - Last 24 Hours (Table) 08/03/18 08/03/18 Range/Units 12:42 14:28 APTT 19.3 L (22.0-30.0) sec Chloride 108 H (98-107) mmol/L BUN 20 H (7-17) mg/dL Glucose 101 H (74-99) mg/dL Thrombosis Risk Factor Assmnt - Choose All That Apply Any of the Below Risk Factors Present?: Yes Each Factor Represents 1 point: Abnormal pulmonary function (COPD) Other Risk Factors: Yes Each Risk Factor Represents 2 Points: Age 61-74 years Thrombosis Risk Factor Assessment Total Risk Factor Score: 3 Thrombosis Risk Factor Assessment Level: Moderate Risk Assessment and Plan Assessment: Assessment and Plan 1. Chest pain: Plans to rule out acute coronary syndrome. Troponin 0.032, EKG showing sinus bradycardia with some inverted T waves. CXR is negative. Telemetry monitoring. O2 per NC to maintain O2 sat > 92%. Pain management with Morphine IV and Nitrostat. Trend 2 more Trop/EKG to r/o ACS. FU Cardiology, Echocardiogram 2. CAD status post CABG and multiple stents: Continue Plavix 75 mg PO QD and Lipitor 20 mg PO QHS. Continue Metoprolol 25 mg PO QD. 3. h/o CVA: Continue Plavix 75 mg PO QD and Lipitor 20 mg PO QHS. 4. Hypertension: Continue Metoprolol 25 mg PO QD and Amlodipine 2.5 mg PO QD. Monitor vitals, adjust medications as necessary. 5. Hypothyroidism: Continue Synthroid 50 mcg PO QD. 6. GERD: Continue Zantac 150 mg PO BID 7. COPD: Stable. Continue DuoNeb QID PRN for SOB/wheezing. Patient requested to leave AMA from the ED after my H&P. I advised the ED attending and AMA forms were signed with the nurse and me. This will serve as a H&P and discharge summary as well.
== END 2018-08-03 17:18 | disposition other institution (70) ==
LOC: EC 12:10 → 3SCARD 14:37 → UNDOADMOB 14:37 → 3SCARD 16:37 → EC 17:18
DX: R07.89 Other chest pain (principal); E78.5 Hyperlipidemia, unspecified; I10 Essential (primary) hypertension; I25.10 Atherosclerotic heart disease of native coronary artery without angina pectoris; E07.9 Disorder of thyroid, unspecified; I25.2 Old myocardial infarction; F17.200 Nicotine dependence, unspecified, uncomplicated; Z88.0 Allergy status to penicillin; Z88.1 Allergy status to other antibiotic agents; Z88.5 Allergy status to narcotic agent; Z88.8 Allergy status to other drugs, medicaments and biological substances; Z91.041 Radiographic dye allergy status; Z91.048 Other nonmedicinal substance allergy status; Z79.899 Other long term (current) drug therapy; Z95.1 Presence of aortocoronary bypass graft; Z86.79 Personal history of other diseases of the circulatory system; Z82.49 Family history of ischemic heart disease and other diseases of the circulatory system
CPT/HCPCS: 36415; 71046; 80053; 83735; 83880; 84484; 85025; 85610; 85730; 99285

== ENCOUNTER → 2018-11-02 | Outpatient (CLI) | payer MEDICARE, OTHER ==
[2018-11-02 18:50] LABS: LDL Cholesterol,Calculated 77.6 mg/dL (0.0-131.0); VLDL Calculation 16.4 mg/dL (5.00-40.00)
== END | disposition home or self-care (01) ==
LOC: LABWHC1 14:12
PROVIDERS: ATTEND Internal Medicine Cardiovascular Disease
DX: E78.2 Mixed hyperlipidemia (principal)
CPT/HCPCS: 36415; 80061; 84450; 84460